=== PATIENT | male | born 1990 | race Caucasian/White ===

== ENCOUNTER 2016-04-08 13:28 | Emergency (ER) | payer OTHER ==
[2016-04-08 14:04] LABS: SPECIFIC GRAVITY 1.015 (1.001-1.030); URINE BILIRUBIN NEGATIVE (NEGATIVE); URINE BLOOD NEGATIVE (NEGATIVE); URINE GLUCOSE (UA) NEGATIVE (NEGATIVE); URINE LEUKOCYTE ESTERASE NEGATIVE (NEGATIVE); URINE NITRITE NEGATIVE (NEGATIVE); URINE PROTEIN NEGATIVE (NEGATIVE); URINE UROBILINOGEN NORMAL (0-1 mg/dl)
[2016-04-08 14:10] LABS: URINE APPEARANCE CLEAR; URINE COLOR YELLOW
[2016-04-08] MEDS ORDERED: MORPHINE SULFATE 4 MG/ML SYRINGE ONE (15:27)
[2016-04-08] MEDS ORDERED: LACTATED RINGERS 1,000 ML ONE (15:27)
[2016-04-08] MEDS ORDERED: PROCHLORPERAZINE 5 MG/ML 2 ML VIAL ONE (15:27)
--- NOTE | 2016-04-08 16:30 | US ---
SCROTUM CONTENTS HISTORY: Right testicular pain for one week. COMPARISONS: None. FINDINGS: Testicular ultrasonography demonstrates symmetric testicles size. The right testicle measures 4.8 x 2.5 x 4.0 cm. The left testicle measures 4.7 x 2.5 x 3.0 cm. There is flow within both testicles which appears to be symmetric. No intratesticular mass is visualized. The epididymides appear to be appropriate. IMPRESSION: 1. Symmetric bilateral testicular flow with no intratesticular mass visualized.
--- NOTE | 2016-04-08 17:01 | CT ---
Exam Type: ABD/PELVIS W/O CON Date and Time: 04/08/2016 3:13 PM Clinical information: Right flank pain. Comparison: None Procedure: Imaging device: [employer] Aqu[employer] [address] scanner 1 mm axial images were obtained through the abdomen and pelvis. Stacked reconstructed 3, 4 and 5 mm images were photographed in the axial coronal and sagittal planes. No oral contrast was utilized for this examination. Exam: Without intravenous contrast. FINDINGS: Lung bases:The visualized lung bases appear to be appropriate with no mass, effusion or consolidation visualized. Liver: the liver is homogeneous with no discrete abnormality visualized. No definite findings of biliary dilatation are observed. Spleen: The spleen is homogeneous and does not appear to be enlarged. Gallbladder: Normal without enlargement or evidence of adjacent inflammatory changes. Pancreas: Normal without enlargement or evidence of adjacent inflammatory changes. Adrenal glands: Normal without enlargement or evidence of adjacent inflammatory changes. Abdominal aorta: The aorta is of normal caliber and appears to be without significant atherosclerotic disease. Kidneys: The kidneys are of relatively symmetric size. There are 2 left-sided intrarenal calculi visualized which appear to measure approximately 2 mm in size. No definite ureteral calculus is visualized. No current findings of hydronephrosis are identified. Bowel structures: The visualized bowel is of normal caliber without evidence of dilatation or obstruction. No free fluid or mesenteric inflammatory changes are identified. Appendix: The appendix is well-visualized and appears to be of normal caliber. No periappendiceal inflammatory changes or CT findings of appendicitis are currently observed. Bladder: The bladder is of normal contour. No wall thickening or significant distention is observed. Hernia: No abdominal wall or inguinal hernia is visualized on this examination. Adenopathy: No significant enlarged adenopathy is visualized. Osseous structures: No discrete osseous abnormalities are identified. Pelvic structures: No discrete pelvic abnormalities are visualized in this examination. IMPRESSION: 1. 2 left-sided intrarenal calculi. No definite ureteral calculus is visualized. 2. A normal appearance of the appendix without current CT evidence to suggest appendicitis.
[2016-04-08] MEDS ORDERED: DOXYCYCLINE HYCLATE 100 MG TABLET ONE (17:54)
[2016-04-08] MEDS ORDERED: CEFTRIAXONE SODIUM 500 MG ONE (17:54)
[2016-04-08] MEDS ORDERED: IBUPROFEN 600 MG TABLET ONE (17:54)
[2016-04-08] MEDS ORDERED: ACETAMINOPHEN 325 MG TABLET ONE (17:54)
[2016-04-10 15:04] LABS: CHLAMYDIA BD Negative (Negative); N.GONORRHOEAE BD Negative (Negative); SOURCE Urine (())
== END 2016-04-08 13:30 | disposition home or self-care (01) ==
LOC: ED 13:28
DX: N45.1 Epididymitis (principal); R11.2 Nausea with vomiting, unspecified; F17.210 Nicotine dependence, cigarettes, uncomplicated
CPT/HCPCS: 87491; 87591; 81003; 74176; 76870; 96375; 99284; 96372; 96374; 96361; 99283; J0780; A9270 ×3; J2270; J0696; J7120